=== PATIENT | male | born 1995 | race Caucasian/White ===

== ENCOUNTER 2017-04-03 15:02 | Emergency (ER) | payer SELFPAY ==
[2017-04-03] MEDS ORDERED: LORazepam 2 MG/ML INJ ONE (15:11)
[2017-04-03] MEDS ORDERED: LORazepam 2 MG/ML INJ IVP ONE (15:24)
[2017-04-03 15:47] LABS: % IMMATURE GRANULYOCYTES 0.6 % (0.0-1.1); ABSOLUTE IMMATURE GRANULOCYTES 0.07 10^3/uL (0.00-0.10); ADD DIFF? NO; ADD MORPH? NO; ADD SCAN? NO; ATYPICAL LYMPHOCYTE FLAG 10 (0-99); FRAGMENT RBC FLAG 0 (0-99); HEMATOCRIT 43.8 % (40.0-51.0); HEMOGLOBIN 15.1 g/dL (13.7-17.5); LEFT SHIFT FLG 0 (0-99); LIPEMIA HEMOLYSIS FLAG 90 (0-99); MEAN CELL HEMOGLOBIN 31.9 pg (27.9-34.1); MEAN CELL HEMOGLOBIN CONCENTR. 34.5 g/dL (32.4-36.7); MEAN CELL VOLUME 92.4 fL (81.5-99.8); MEAN PLATELET VOLUME 9.2 fL (8.7-11.7); PLATELET CLUMPS FLAG 0 (0-99); PLATELET COUNT 317 10^3/uL (150-400); RED BLOOD CELL COUNT 4.74 10^6/uL (4.40-6.38)
--- NOTE | 2017-04-03 15:47 | EDPHY ---
H & P Stated Complaint: Witnessed SZ Time Seen by Provider: 04/03/17 15:46 - Personal History Current Tetanus/Diphtheria Vaccine: Yes Current Tetanus Diphtheria and Acellular Pertussis (TDAP): Yes - Medical/Surgical History Hx Asthma: No Hx Chronic Respiratory Disease: No Hx Diabetes: No Hx Cardiac Disease: No Hx Renal Disease: No Hx Cirrhosis: No Hx Alcoholism: No Hx HIV/AIDS: No Hx Splenectomy or Spleen Trauma: No Other PMH: ADHD - Social History Smoking Status: Never smoked Constitutional: Initial Vital Signs Temperature (C) 36.8 C 04/03/17 15:18 Heart Rate 90 04/03/17 15:18 Respiratory Rate 14 04/03/17 15:18 Blood Pressure 123/70 H 04/03/17 15:18 O2 Sat (%) 91 L 04/03/17 15:18 O2 Delivery Mode Room Air O2 (L/minute) 2 Allergies/Adverse Reactions: No Known Allergies Allergy (Unverified 04/03/17 15:21) Home Medications: Medication Instructions Recorded Adderall 10 MG (*) 04/03/17 Medical Decision Making - Diagnostics Imaging: Discussed imaging studies w/ call center dispatcher Radiologist, I viewed and interpreted images myself ED Course/Re-evaluation: CHIEF COMPLAINT: Seizure HISTORY OF PRESENT ILLNESS: The patient is a 21 y/o male with a seizure disorder arriving via EMS after two witnessed seizures this afternoon. He reports today is the third time he's had a seizure while sleep deprived and does not take medication for this. He says he was evaluated at the ED in [place] a couple years ago and was told it was due to not eating enough food. Today , his friend who is at bedside, saw him reaching up to a shelf in the kitchen then become suddenly rigid and fell to the ground seizing. When he regained consciousness, he was confused. He apparently had a second seizure as EMS was taking him out to the ambulance. He has eaten and slept very little in the last couple days. He reports using Adderall during the school year, but denies current use. Also denies other significant illicit drug or alcohol use. I spoke with the patient's father, who is concerned the patient is drinking heavily, using benzodiazepines, and partying while here. REVIEW OF SYSTEMS: A 10 point review of systems was performed and is negative with the exception of the elements mentioned in the history of present illness. PHYSICAL EXAM: HR, BP, O2 Sat, RR. Temp noted General Appearance: Alert, well hydrated, appropriate, and non-toxic appearing. Head: Atraumatic without scalp tenderness or obvious injury Eyes: Pupils equal, round, reactive to light and accommodation, EOMI, no trauma , no injection. Ears: Clear bilaterally, no perforation, normal landmarks Nose: Atraumatic, no rhinorrhea, clear. Throat: There is no erythema or exudates, no lesions, normal tonsils, mucus membranes moist. Neck: Supple, upstroke, nontender, no lymphadenopathy. Respiratory: No retractions, no distress, no wheezes, and no accessory muscle use. Lungs are clear to auscultation bilaterally. Cardiovascular: Regular rate and rhythm, no murmurs, rubs, or gallops. Good capillary refill all extremities. Gastrointestinal: Abdomen is soft, nontender, non-distended, no masses, no rebound, no guarding, no peritoneal signs. Musculoskeletal: Normal active ROM of all extremities, atraumatic. Neurological: Alert, appropriate, and interactive. The patient has normal DTRs and non-focal cranial nerves, motor, sensory, and cerebellar exam. Skin: No rashes, good turgor, no nodules on palpation. Past medical history: ADD, seizure history - [facility] in [place] 2 years ago Past surgical history: Denies Family history: Noncontributory Social history: Friend at bedside, from [place] DIFFERENTIAL DIAGNOSIS: The differential diagnosis for the patient's seizure included but was not limited to electrolyte abnormality, alcohol withdrawal, medication noncompliance, head injury, LINESPERSON structural abnormality, and break through seizure. MEDICAL DECISION MAKING: This is a 21 y/o male with suspected illicit drug abuse who presents after 2 witnessed seizures this afternoon. He is not completely forthcoming about prior seizures or recent drug or alcohol use. He states his previous seizures were due to "not eating enough." Plan for IV, labs, 1mg IV Ativan, and brain MRI. 1610: Patient told RN he lied to me and actually was up all night using cocaine and drinking. I've cancelled the MRI, because he reports he had previously normal imaging and his seizure is consistent with drug-related seizure. Tox screen positive for cocaine and benzos. I discussed work up with the patient and recommended discontinuing illicit drug use and heavy alcohol use. He remains neurovascularly intact. I advised him not to drive or participate in other activities that could be harmful in the case of recurrent seizures. I discussed parts of his work up with the patient's father with the patient's consistent. I've also referred him to neuro. Return precautions given. 1835: Consulted with Dr. Dyson, neurology. He will see patient in his outpatient clinic. - Data Points Laboratory Results: Laboratory Results 04/03/17 Unknown 04/03/17 Unknown 04/03/17 04/03/17 04/03/17 Unknown Unknown 17:00 WBC 11.13 10^3/uL H 10^3/uL (3.80-9.50) RBC 4.74 10^6/uL 10^6/uL (4.40-6.38) Hgb 15.1 g/dL g/dL (13.7-17.5) Hct 43.8 % % (40.0-51.0) MCV 92.4 fL fL (81.5-99.8) MCH 31.9 pg pg (27.9-34.1) MCHC 34.5 g/dL g/dL (32.4-36.7) RDW 12.0 % % (11.5-15.2) Plt Count 317 10^3/uL 10^3/uL (150-400) MPV 9.2 fL fL (8.7-11.7) Neut % (Auto) 51.9 % % (39.3-74.2) Lymph % (Auto) 25.4 % % (15.0-45.0) [place] % (Auto) 6.2 % % (4.5-13.0) Eos % (Auto) 15.3 % H % (0.6-7.6) Baso % (Auto) 0.6 % % (0.3-1.7) Nucleat RBC Rel Count 0.0 % % (0.0-0.2) Absolute Neuts (auto) 5.77 10^3/uL 10^3/uL (1.70-6.50) Absolute Lymphs (auto) 2.83 10^3/uL 10^3/uL (1.00-3.00) Absolute Monos (auto) 0.69 10^3/uL 10^3/uL (0.30-0.80) Absolute Eos (auto) 1.70 10^3/uL H 10^3/uL (0.03-0.40) Absolute Basos (auto) 0.07 10^3/uL 10^3/uL (0.02-0.10) Absolute Nucleated RBC 0.00 10^3/uL 10^3/uL (0-0.01) Immature Gran % 0.6 % % (0.0-1.1) Immature Gran # 0.07 10^3/uL 10^3/uL (0.00-0.10) Sodium 141 mEq/L mEq/L (134-144) Potassium 4.3 mEq/L mEq/L (3.5-5.2) Chloride 107 mEq/L mEq/L (97-110) Carbon Dioxide 16 mEq/l L mEq/l (22-31) Anion Gap 18 mEq/L H mEq/L (8-16) BUN 15 mg/dL mg/dL (7-23) Creatinine 1.2 mg/dL mg/dL (0.7-1.3) Estimated GFR > 60 Glucose 129 mg/dL H mg/dL (70-100) Calcium 10.7 mg/dL H mg/dL (8.5-10.4) Phosphorus 2.9 mg/dL mg/dL (2.5-4.5) Urine Opiates Screen NEGATIVE (NEGATIVE) Urine Barbiturates NEGATIVE (NEGATIVE) Ur Phencyclidine Scrn NEGATIVE (NEGATIVE) Ur Amphetamine Screen NEGATIVE (NEGATIVE) U Benzodiazepines Scrn NON-NEGATIVE H (NEGATIVE) Urine Cocaine Screen NON-NEGATIVE H (NEGATIVE) U Marijuana (THC) Screen NON-NEGATIVE H (NEGATIVE) Medications Given: Discontinued Medications Lorazepam (Ativan Injection) 1 mg IVP EDNOW ONE Stop: 04/03/17 15:25 Last Admin: 04/03/17 15:24 Dose: 1 mg Departure - Departure Disposition: Home, Routine, Self-Care Clinical Impression: Seizure, related to drug use Condition: Good Instructions: Recurrent Seizures in Adults (ED) Additional Instructions: Avoid illicit drug and alcohol use as these can contribute to seizures, particularly since you are now considered predisposed to seizures. Try to get enough sleep every night. Do not drive, ride a bike, swim, or operate heavy machinery that could put your or others at risk in case of recurrent seizure until cleared by a neurologist. Follow up with a neurologist within the next week. Follow up with the [facility] if you need help detoxing from any substances. Return to the ED for any worsening of condition. Referrals: Patient,NotPresent [Unknown] - As per Instructions Matt Dyson MD [Medical Doctor] - As per Instructions [facility] 24 Hours [Outside] - As per Instructions Report Scribed for: Kenny Rod Report Scribed by: Swati Barrera Date of Report: 04/03/17 Time of Report: 15:57
[2017-04-03 16:07] LABS: ANION GAP 18 mEq/L (8-16); CALCIUM 10.7 mg/dL (8.5-10.4); CARBON DIOXIDE 16 mEq/l (22-31); CHLORIDE 107 mEq/L (97-110); CREATININE 1.2 mg/dL (0.7-1.3); GLOMERULAR FILTRATION RATE > 60; GLUCOSE 129 mg/dL (70-100); POTASSIUM 4.3 mEq/L (3.5-5.2); SODIUM 141 mEq/L (134-144)
[2017-04-03 18:57] VITALS: BP 115/76; PULSE 78; RESP 14; TEMP 98.7; O2SAT 98
== END 2017-04-03 18:55 | disposition home or self-care (01) ==
DX: G40.909 Epilepsy, unspecified, not intractable, without status epilepticus (principal)
CPT/HCPCS: 80305; 96374; J2060